=== PATIENT | female | born 2000 | race Two or more races ===

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

== ENCOUNTER 2021-09-12 20:48 | Inpatient (IN) | payer MEDICAID, OTHER ==
--- NOTE | 2021-09-12 22:33 | ED ---
General Adult HPI - General Chief complaint: Psychiatric Symptoms Stated complaint: Mental Health Time Seen by Provider: 09/12/21 21:11 Source: patient Mode of arrival: ambulatory Limitations: no limitations - History of Present Illness Initial comments: Dictation was produced using [facility] dictation software. please excuse any grammatical, word or spelling errors. Chief Complaint: 21-year-old female past medical history of insulin-dependent diabetes, epilepsy presents to the emergency department for depression and suicidal ideation History of Present Illness: 21-year-old female she denies any psychiatric history. Patient states she's been feeling suicidal for several weeks. Last night she felt like she wanted to end her life. She does not have a specific plan. Patient has history of diabetes she is noncompliant with her diabetes medications. Patient has no medical complaints at this time. Denies homicidal ideation. No visual or auditory hallucinations. Patient takes control pills. The ROS documented in this emergency department record has been reviewed and confirmed by me. Those systems with pertinent positive or negative responses have been documented in the HPI. All other systems are other negative and/or noncontributory. PHYSICAL EXAM: General Impression: Alert and oriented x3, not in acute distress HEENT: Normocephalic atraumatic, extra-ocular movements intact, pupils equal and reactive to light bilaterally, mucous membranes moist. Cardiovascular: Heart regular rate and rhythm Chest: Able to complete full sentences, no retractions, no tachypnea Abdomen: abdomen soft, non-tender, non-distended, no organomegaly Musculoskeletal: Pulses present and equal in all extremities, no peripheral edema Motor: no focal deficits noted Neurological: CN II-XII grossly intact, no focal motor or sensory deficits noted Skin: Intact with no visualized rashes Psych: Normal affect and mood ED course: 21 yo female presents to the emergency Department for suicidal ideation. She does not a specific plan. She is calm and well-appearing at the bedside. Patient denies any medical complaints. Physical examination is benign. Vital signs upon arrival shows heart rate 115, so vital signs within acceptable limits. Patient evaluated by EPS that we admitted to inpatient psychiatric unit. - Related Data Home Medications Medication Instructions Recorded Confirmed Norgestimate-Ethinyl Estradiol 1 each PO DAILY 12/10/14 03/17/16 [Ortho Tri-Cyclen 28 Tablet] Spironolactone [Aldactone] 25 mg PO DAILY 12/10/14 03/17/16 metFORMIN HCL [metFORMIN HCL ER] 1,000 mg PO DAILY 12/10/14 03/17/16 Naproxen [Naprosyn] 250 mg PO BID 03/17/16 03/17/16 Previous Rx's Medication Instructions Recorded Cyclobenzaprine [Flexeril] 10 mg PO TID PRN #15 tab 12/27/14 Doxycycline Monohydrate [Monodox] 100 mg PO Q12HR #20 cap 07/08/18 Allergies Allergy/AdvReac Type Severity Reaction Status Date / Time amoxicillin Allergy Unknown Verified 09/12/21 21:33 Review of Systems ROS Statement: Those systems with pertinent positive or pertinent negative responses have been documented in the HPI. ROS Other: All systems not noted in ROS Statement are negative. Past Medical History Past Medical History: Diabetes Mellitus Additional Past Medical History / Comment(s): back pain History of Any Multi-Drug Resistant Organisms: None Reported Past Surgical History: Orthopedic Surgery Additional Past Surgical History / Comment(s): left thumb Past Psychological History: Depression Smoking Status: Never smoker Past Alcohol Use History: Occasional Past Drug Use History: None Reported General Exam Limitations: no limitations Course Vital Signs 09/12/21 21:29 Temperature 98.0 F Pulse Rate 115 H Respiratory 18 Rate Blood Pressure 164/121 O2 Sat by Pulse 98 Oximetry Medical Decision Making - Lab Data Lab Results 09/13/21 09/13/21 09/13/21 Range/Units 00:38 00:38 00:47 POC Glucose (mg/dL) 254 H (70-110) mg/dL POC Glu Card Seller ID Kacey Schmitz Urine HCG, Qual Not Detected (Not Detectd) Urine Opiates Screen Not Detected (NotDetected) Ur Oxycodone Screen Not Detected (NotDetected) Urine Methadone Screen Not Detected (NotDetected) Ur Propoxyphene Screen Not Detected (NotDetected) Ur Barbiturates Screen Not Detected (NotDetected) U Tricyclic Antidepress Not Detected (NotDetected) Ur Phencyclidine Scrn Not Detected (NotDetected) Ur Amphetamines Screen Not Detected (NotDetected) U Methamphetamines Scrn Not Detected (NotDetected) U Benzodiazepines Scrn Not Detected (NotDetected) Urine Cocaine Screen Not Detected (NotDetected) U Marijuana (THC) Screen Not Detected (NotDetected) Disposition Clinical Impression: Suicidal behavior Disposition: ADMITTED IP TO THIS [facility] Condition: Fair Referrals: Sushant Fuentes DO [Primary Care Provider] - 1-2 days
[2021-09-13 00:49] LABS: Glucose,Whole Blood 254 mg/dL (70-110)
[2021-09-13 01:31] LABS: Amphetamine Screen,Urine Not Detected (NotDetected); Barbiturate Screen,Urine Not Detected (NotDetected); Benzodiazepines Screen,Urine Not Detected (NotDetected); Cocaine Screen,Urine Not Detected (NotDetected); Methadone Screen, Urine Not Detected (NotDetected); Opiate Screen,Urine Not Detected (NotDetected); Oxycodone Screen, Urine Not Detected (NotDetected); Phencyclidine Screen,Urine Not Detected (NotDetected); Tricyclic Antidepressant,Urine Not Detected (NotDetected); Urn Cannabinoid Scrn Not Detected (NotDetected)
[2021-09-13 05:07] LABS: Appearance,Urine Clear (Clear); Bilirubin,Urine Negative (Negative); Blood,Urine Negative (Negative); Color,Urine Yellow; Glucose,Urine (UA) 4+ (Negative); Leukocyte Esterase,Urine Trace (Negative); Mucus,Urine Rare /hpf; Nitrite,Urine Negative (Negative); Protein,Urine Trace (Negative); RBC,Urine 5 /hpf (0-5); Specific Gravity,Urine 1.044 (1.001-1.035); Squamous Epithelial Cell,Urine 2 /hpf (0-4); Urobilinogen,Urine <2.0 mg/dL (<2.0); WBC,Urine 3 /hpf (0-5)
[2021-09-13] MEDS ORDERED: LORazepam 1 MG TAB PO PRN (06:13)
[2021-09-13] MEDS ORDERED: ACETAMINOPHEN TAB 325 MG TAB PO PRN (06:13)
[2021-09-13] MEDS ORDERED: MAGNESIUM HYDROXIDE 2,400 MG/10 ML CUP PO PRN (06:13)
[2021-09-13] MEDS ORDERED: HALOPERIDOL LACTATE 5 MG/ML 1 ML VIAL IM PRN (06:13)
[2021-09-13] MEDS ORDERED: MAG HYDROX/AL HYDROX/SIMETH 30 ML CUP PO PRN (06:13)
[2021-09-13] MEDS ORDERED: LORazepam 2 MG/ML INJ IM PRN (06:17)
[2021-09-13] MEDS ORDERED: haloperidoL 5 MG TAB PO PRN (06:18)
[2021-09-13 06:40] VITALS: RESP 16
[2021-09-13 07:47] LABS: Ketones,Urine 2+ (Negative)
[2021-09-13 07:55] LABS: Glucose,Whole Blood 250 mg/dL (70-110)
[2021-09-13 10:33] LABS: Basophils % (A) 0 %; Eosinophils # (A) 0.2 k/uL (0-0.7); Eosinophils % (A) 1 %; HCT 46.1 % (34.0-46.0); HGB 14.8 gm/dL (11.4-16.0); Lymphocytes # (A) 1.8 k/uL (1.0-4.8); Lymphocytes % (A) 16 %; MCH 29.1 pg (25.0-35.0); MCHC 32.1 g/dL (31.0-37.0); MCV 90.5 fL (80.0-100.0); Mean Platelet Volume 8.6; Monocytes # (A) 0.4 k/uL (0-1.0); Monocytes % (A) 3 %; Neutrophils % (A) 79 %; Platelet Count 235 k/uL (150-450); RBC 5.09 m/uL (3.80-5.40); RDW 13.3 % (11.5-15.5); WBC 11.4 k/uL (3.8-10.6)
[2021-09-13 10:46] LABS: ALT 50 U/L (4-34); AST 39 U/L (14-36); African American GFR (CKD) >90 (>60 ml/min/1.73 sqM); Albumin 4.6 g/dL (3.5-5.0); Alkaline Phosphatase 69 U/L (38-126); Anion Gap 13 mmol/L; Blood Urea Nitrogen 15 mg/dL (7-17); Calcium 9.8 mg/dL (8.4-10.2); Carbon Dioxide 19 mmol/L (22-30); Chloride 106 mmol/L (98-107); Glucose 270 mg/dL (74-99); Non-African American GFR(CKD) >90 (>60 ml/min/1.73 sqM); Potassium 4.4 mmol/L (3.5-5.1); Sodium 138 mmol/L (137-145); Total Bilirubin 1.4 mg/dL (0.2-1.3); Total Protein 7.6 g/dL (6.3-8.2)
[2021-09-13] MEDS ORDERED: CYCLOBENZAPRINE 10 MG TAB PO PRN (10:46)
[2021-09-13] MEDS ORDERED: metFORMIN 500 MG TAB PO SCH (11:00)
[2021-09-13] MEDS: NAPROXEN 250 MG TAB PO SCH ×2 (12:12→21:42)
[2021-09-13 12:36] LABS: Glucose,Whole Blood 259 mg/dL (70-110)
[2021-09-13] MEDS: INSULIN ASPART (NovoLOG) 100 UNIT/ML VIAL SQ SCH ×3 (12:53→21:42)
--- NOTE | 2021-09-13 14:35 | P.CONS ---
History of Present Illness - Reason for Consult Consult date: 09/13/21 Medical management - Chief Complaint Suicidal ideation/depression - History of Present Illness 21-year-old female she denies any psychiatric history, with history of insulin- dependent diabetes and epilepsy. Patient states she's been feeling suicidal for several weeks. Last night she felt like she wanted to end her life. She does not have a specific plan. Patient has history of diabetes she is noncompliant with her diabetes medications. Patient has no medical complaints at this time. Denies homicidal ideation. No visual or auditory hallucinations. Patient takes control pills. Blood work completed in ED reveals a WBC of 11.4, hemoglobin of 14.8 and hematocrit of 46.1 with platelet count of 235, sodium 138, potassium 4.4, BUN/creatinine of 15/0.42 and blood glucoses ranging between 252-60; total bilirubin is elevated at 1.4 with AST/ALT of 39/50 Review of Systems REVIEW OF SYSTEMS: CONSTITUTIONAL: No fever, no malaise, no fatigue. HEENT: No recent visual problems or hearing problems. Denied any sore throat. CARDIOVASCULAR: No chest pain, orthopnea, PND, no palpitations, no syncope. PULMONARY: No shortness of breath, no cough, no hemoptysis. GASTROINTESTINAL: No diarrhea, no nausea, no vomiting, no abdominal pain. NEUROLOGICAL: No headaches, no weakness, no numbness. HEMATOLOGICAL: Denies any bleeding or petechiae. GENITOURINARY: Denies any burning micturition, frequency, or urgency. MUSCULOSKELETAL/RHEUMATOLOGICAL: Denies any joint pain, swelling, or any muscle pain. ENDOCRINE: Denies any polyuria or polydipsia. The rest of the 14-point review of systems is negative. Past Medical History Past Medical History: Diabetes Mellitus Additional Past Medical History / Comment(s): back pain History of Any Multi-Drug Resistant Organisms: None Reported Past Surgical History: Orthopedic Surgery Additional Past Surgical History / Comment(s): left thumb Past Psychological History: Depression Smoking Status: Never smoker Past Alcohol Use History: Occasional Past Drug Use History: None Reported Medications and Allergies Home Medications Medication Instructions Recorded Confirmed Type Norgestimate-Ethinyl Estradiol 1 each PO DAILY 12/10/14 09/13/21 History [Ortho Tri-Cyclen 28 Tablet] Spironolactone [Aldactone] 25 mg PO DAILY 12/10/14 09/13/21 History metFORMIN HCL [metFORMIN HCL ER] 1,000 mg PO DAILY 12/10/14 09/13/21 History Cyclobenzaprine [Flexeril] 10 mg PO TID PRN #15 tab 12/27/14 09/13/21 Rx Naproxen [Naprosyn] 250 mg PO BID 03/17/16 09/13/21 History Doxycycline Monohydrate [Monodox] 100 mg PO Q12HR #20 cap 07/08/18 09/13/21 Rx Allergies Allergy/AdvReac Type Severity Reaction Status Date / Time amoxicillin Allergy Unknown Verified 09/13/21 06:52 Physical Exam Vitals: Vital Signs Temp Pulse Pulse Resp BP BP Pulse Ox 09/13/21 06:39 98.2 F 105 H 16 141/80 97 09/12/21 21:29 98.0 F 115 H 18 164/121 98 Intake and Output 09/12/21 09/13/21 09/13/21 22:59 06:59 14:59 Other: Weight 104.326 kg PHYSICAL EXAMINATION: GENERAL: The patient is alert and oriented x3, not in any acute distress. Well developed, well nourished. HEENT: Pupils are round and equally reacting to light. EOMI. No scleral icterus. No conjunctival pallor. Normocephalic, atraumatic. No pharyngeal erythema. No thyromegaly. CARDIOVASCULAR: S1 and S2 present. No murmurs, rubs, or gallops. PULMONARY: Chest is clear to auscultation, no wheezing or crackles. ABDOMEN: Soft, nontender, nondistended, normoactive bowel sounds. No palpable organomegaly. MUSCULOSKELETAL: No joint swelling or deformity. EXTREMITIES: No cyanosis, clubbing, or pedal edema. NEUROLOGICAL: Gross neurological examination did not reveal any focal deficits. SKIN: No rashes. Results CBC & Chem 7: 09/13/21 10:10 09/13/21 10:10 Labs: Abnormal Lab Results - Last 24 Hours (Table) 09/13/21 09/13/21 09/13/21 Range/Units 00:38 00:47 07:53 WBC (3.8-10.6) k/uL Hct (34.0-46.0) % Neutrophils # (1.3-7.7) k/uL POC Glucose (mg/dL) 254 H 250 H (70-110) mg/dL Ur Specific [place] 1.044 H (1.001-1.035) Urine Protein Trace H (Negative) Urine Glucose (UA) 4+ H (Negative) Urine Ketones 2+ H (Negative) Ur Leukocyte Esterase Trace H (Negative) Urine Mucus Rare H (None) /hpf 09/13/21 Range/Units 10:10 WBC 11.4 H (3.8-10.6) k/uL Hct 46.1 H (34.0-46.0) % Neutrophils # 9.0 H (1.3-7.7) k/uL POC Glucose (mg/dL) (70-110) mg/dL Ur Specific [place] (1.001-1.035) Urine Protein (Negative) Urine Glucose (UA) (Negative) Urine Ketones (Negative) Ur Leukocyte Esterase (Negative) Urine Mucus (None) /hpf Assessment and Plan Assessment: 1. Depression/suicidal ideation; your management 2. Diabetes mellitus; patient reports that she was initially placed on metformin and was later switched to insulin; confides that she hasn't been able to take insulin or metformin not being able to follow-up with PCP; we will start patient on home dose of metformin and continue to monitor Accu-Cheks every before meals and at bedtime with insulin sliding scale; further adjustments pending results 3. Chronic back pain; continue with Naprosyn 4. Transaminitis/hyperbilirubinemia; patient denies any history of EtOH abuse or history of gallstones; we will monitor liver enzymes with plans to obtain hepatic ultrasound, hepatitis profile 5. Obesity; counseling done and need for weight reduction
[2021-09-13 16:28] LABS: Albumin 4.4 g/dL (3.5-5.0); Bilirubin, Delta 0.2 mg/dL (0.0-0.2); Bilirubin,Unconjugated 0.7 mg/dL (0.0-1.1); Total Bilirubin 0.9 mg/dL (0.2-1.3); Total Protein 7.1 g/dL (6.3-8.2)
[2021-09-13 17:37] LABS: Glucose,Whole Blood 227 mg/dL (70-110)
[2021-09-13 20:12] LABS: Glucose,Whole Blood 248 mg/dL (70-110)
[2021-09-13] MEDS ORDERED: traZODone HCL 50 MG TAB PO PRN (21:35)
[2021-09-13] MEDS: metFORMIN 500 MG TAB PO SCH (21:42)
[2021-09-13] MEDS: ESCITALOPRAM 5 MG TAB PO SCH (21:44)
--- NOTE | 2021-09-13 22:04 | P.HP ---
Psychiatric H&P - . H&P Date: 09/13/21 History & Physical: IDENTIFYING DATA: Patient is a single 21 year old female with depression and insulin dependent diabetes. HPI: Patient presented to the hospital due to suicidal ideations. She reports she started feeling depressed before her mother in 2016, but she has been increasingly more depressed over since her mother . She reports feeling hopeless, helpless, worthless. She reports she has been having suicidal thoughts for the past year but reports she previously did not have a plan. She reports over the past three weeks she has had plans of overdosing on her sister's pills. She states she is responsible for overseeing her sister's pills since her sister has overdosed multiple times in the past. She denies any past suicide attempts, thinks of her sister and that is a protective factor for her. She reports difficulty falling and staying asleep, and wakes up early without being able to return to sleep, gets about 3-4 hours of sleep at night. She reports anhedonia, guilt, low energy, difficulty concentrating, fair appetite, psychomotor retardation. She reports high anxiety with chronic worries that are difficult to control, with feeling restless/on-edge, and irritable. She denies panic attacks. She reports hearing noises at times that she can't make out, but denies overt auditory or visual hallucinations. She does not express paranoid ideations. Patient denies any flight of ideas racing thoughts and increased in goal directed behavior. Patient denies alcohol, drug or tobacco use. PAST PSYCHIATRIC HISTORY: Patient states that she had previously seen a counselor who told her she had major depressive disorder and acute stress disorder. Patient denies being on any psychiatric medications. Patient denies any previous psychiatric hospitalizations. Patient denies any psychiatric outpatient follow-up. Patient denies any history of suicide attempts in the past. PMH: Insulin-dependent diabetes Epilepsy - not on medications for it, reports last seizure was at around 4 years old. ALLERGIES: as per EMR CHEMICAL DEPENDENCY HISTORY: as per HPI FAMILY PSYCHIATRIC/SUBSTANCE USE HISTORY: Sister - depression, anxiety, borderline personality disorder; takes Adderall and Seroquel and another medications, has been hospitalized, has attempted suicide multiple times. Patient reports each time her sister has attempted suicide (by overdose) she has come to patient and patient would call 911/take her to the hospital. Father - depression SOCIAL HISTORY: Patient was born in [facility] and raised in [facility]. Parents were , mother in 2016 due to heart attack while patient was with her at home (mother collapsed in front of patient, called 911, mother was brought to [facility] and here). Has a younger sister (19 yo). Lives with her younger sister and father in [place], [place]. Father works as a kier operator. She is enrolled in an online program to finish high school. Does not work, does school online. 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 MENTAL STATUS EXAM: General Appearance: Patient appears to be stated age, obese, dressed in casual attire, hair dyed multiple colors. Behavior: Patient is seated without any agitated behavior, is tearful. Speech: Patient's speech is fluent and non-pressured, speaks in soft tone. Mood/Affect: Patient reports her mood is depressed, affect is congruent. Suicidality/Homicidality: Patient denies having any homicidal ideation intent or plan. Patient endorses suicidal ideation with plan to overdose on pills. Perceptions: Patient denies any visual hallucinations and denies any auditory hallucinations. Though content/process: There is no evidence of any delusional thought content and thought process is linear and goal-directed. Memory and concentration: AOX3, grossly intact for the purposes of this session. Can spell "WORLD" backwards. Judgment and insight: Good STRENGTHS/WEAKNESSES: Strength is that patient is resilient. Weakness is that patient does not have transportation. INTELLECT: Average IMPRESSIONS: Major depressive disorder, single episode, severe Generalized anxiety disorder PLAN: -Patient is admitted under voluntary status to [facility] for stabilization of psychiatric symptoms and safety. Patient has signed adult voluntary form and medication consent and is placed in patient's chart. -Medications: Start Lexapro at 5 mg QHS for depression/anxiety with plan to increase to 10 mg as tolerated. Start Trazodone 50 mg QHS PRN for sleep. -Ativan and Haldol PRN for agitation/aggression -Patient was informed of the risks, benefits and side effects of the medication and patient verbally consented to taking the medications. Patient signed med consent form and was placed in chart. -Internal Medicine consult to perform medical evaluation and physical. -NRT - not needed, nonsmoker -Encourage patient to participate in groups to work on coping skills. Allergies Allergy/AdvReac Type Severity Reaction Status Date / Time amoxicillin Allergy Unknown Verified 09/13/21 06:52 Vital Signs Temp 98.2 F 09/13/21 06:39 Pulse 105 H 09/13/21 06:39 Resp 16 09/13/21 06:39 BP 141/80 09/13/21 06:39 Pulse Ox 97 09/13/21 06:39 FiO2 Intake & Output 09/13/21 09/13/21 09/14/21 06:59 18:59 06:59 Weight 104.326 kg 103.9 kg Laboratory Last Values WBC 11.4 k/uL (3.8-10.6) H 09/13/21 10:10 RBC 5.09 m/uL (3.80-5.40) 09/13/21 10:10 Hgb 14.8 gm/dL (11.4-16.0) 09/13/21 10:10 Hct 46.1 % (34.0-46.0) H 09/13/21 10:10 MCV 90.5 fL (80.0-100.0) 09/13/21 10:10 MCH 29.1 pg (25.0-35.0) 09/13/21 10:10 MCHC 32.1 g/dL (31.0-37.0) 09/13/21 10:10 RDW 13.3 % (11.5-15.5) 09/13/21 10:10 Plt Count 235 k/uL (150-450) 09/13/21 10:10 MPV 8.6 09/13/21 10:10 Neutrophils % 79 % 09/13/21 10:10 Lymphocytes % 16 % 09/13/21 10:10 Monocytes % 3 % 09/13/21 10:10 Eosinophils % 1 % 09/13/21 10:10 Basophils % 0 % 09/13/21 10:10 Neutrophils # 9.0 k/uL (1.3-7.7) H 09/13/21 10:10 Lymphocytes # 1.8 k/uL (1.0-4.8) 09/13/21 10:10 Monocytes # 0.4 k/uL (0-1.0) 09/13/21 10:10 Eosinophils # 0.2 k/uL (0-0.7) 09/13/21 10:10 Basophils # 0.0 k/uL (0-0.2) 09/13/21 10:10 Sodium 138 mmol/L (137-145) 09/13/21 10:10 Potassium 4.4 mmol/L (3.5-5.1) 09/13/21 10:10 Chloride 106 mmol/L (98-107) 09/13/21 10:10 Carbon Dioxide 19 mmol/L (22-30) L 09/13/21 10:10 Anion Gap 13 mmol/L 09/13/21 10:10 BUN 15 mg/dL (7-17) 09/13/21 10:10 Creatinine 0.42 mg/dL (0.52-1.04) L 09/13/21 10:10 Est GFR (CKD-EPI)AfAm >90 (>60 ml/min/1.73 sqM) 09/13/21 10:10 Est GFR (CKD-EPI)NonAf >90 (>60 ml/min/1.73 sqM) 09/13/21 10:10 Glucose 270 mg/dL (74-99) H 09/13/21 10:10 POC Glucose (mg/dL) 248 mg/dL (70-110) H 09/13/21 20:10 POC Glu Scalp Treatment Operator ID Matt Alatorre 09/13/21 20:[address] Glu mg/dL 260 09/13/21 10:10 Hemoglobin A1c 10.7 % (0.0-6.0) H 09/13/21 10:10 Calcium 9.8 mg/dL (8.4-10.2) 09/13/21 10:10 Total Bilirubin 0.9 mg/dL (0.2-1.3) 09/13/21 15:27 Conjugated Bilirubin 0.0 mg/dL (0.0-0.3) 09/13/21 15:27 Unconjugated Bilirubin 0.7 mg/dL (0.0-1.1) 09/13/21 15:27 Delta Bilirubin 0.2 mg/dL (0.0-0.2) 09/13/21 15:27 AST 26 U/L (14-36) 09/13/21 15:27 ALT 47 U/L (4-34) H 09/13/21 15:27 Alkaline Phosphatase 74 U/L (38-126) 09/13/21 15:27 Total Protein 7.1 g/dL (6.3-8.2) 09/13/21 15:27 Albumin 4.4 g/dL (3.5-5.0) 09/13/21 15:27 TSH 2.540 mIU/L (0.465-4.680) 09/13/21 10:10 Urine Color Yellow 09/13/21 00:38 Urine Appearance Clear (Clear) 09/13/21 00:38 Urine pH 5.0 (5.0-8.0) 09/13/21 00:38 Ur Specific Preston 1.044 (1.001-1.035) H 09/13/21 00:38 Urine Protein Trace (Negative) H 09/13/21 00:38 Urine Glucose (UA) 4+ (Negative) H 09/13/21 00:38 Urine Ketones 2+ (Negative) H 09/13/21 00:38 Urine Blood Negative (Negative) 09/13/21 00:38 Urine Nitrite Negative (Negative) 09/13/21 00:38 Urine Bilirubin Negative (Negative) 09/13/21 00:38 Urine Urobilinogen <2.0 mg/dL (<2.0) 09/13/21 00:38 Ur Leukocyte Esterase Trace (Negative) H 09/13/21 00:38 Urine RBC 5 /hpf (0-5) 09/13/21 00:38 Urine WBC 3 /hpf (0-5) 09/13/21 00:38 Ur Squamous Epith Cells 2 /hpf (0-4) 09/13/21 00:38 Urine Mucus Rare /hpf (None) H 09/13/21 00:38 Urine HCG, Qual Not Detected (Not Detectd) 09/13/21 00:38 Urine Opiates Screen Not Detected (NotDetected) 09/13/21 00:38 Ur Oxycodone Screen Not Detected (NotDetected) 09/13/21 00:38 Urine Methadone Screen Not Detected (NotDetected) 09/13/21 00:38 Ur Propoxyphene Screen Not Detected (NotDetected) 09/13/21 00:38 Ur Barbiturates Screen Not Detected (NotDetected) 09/13/21 00:38 U Tricyclic Antidepress Not Detected (NotDetected) 09/13/21 00:38 Ur Phencyclidine Scrn Not Detected (NotDetected) 09/13/21 00:38 Ur Amphetamines Screen Not Detected (NotDetected) 09/13/21 00:38 U Methamphetamines Scrn Not Detected (NotDetected) 09/13/21 00:38 U Benzodiazepines Scrn Not Detected (NotDetected) 09/13/21 00:38 Urine Cocaine Screen Not Detected (NotDetected) 09/13/21 00:38 U Marijuana (THC) Screen Not Detected (NotDetected) 09/13/21 00:38 Coronavirus (PCR) Not Detected (Not Detectd) 09/13/21 05:20 09/13/21 20:57
[2021-09-14 08:12] LABS: Glucose,Whole Blood 182 mg/dL (70-110)
[2021-09-14 09:07] LABS: Chol/HDL Ratio 5.69 Ratio; LDL Cholesterol,Calculated 119.1 mg/dL (0.0-131.0)
[2021-09-14 09:13] LABS: Hepatitis A Antibody IgM Nonreactive (Nonreactive); Hepatitis B Core IgM Nonreactive (Nonreactive); Hepatitis B Surface Antigen Nonreactive (Nonreactive); Hepatitis C IgG Antibody Nonreactive (Nonreactive)
[2021-09-14 13:05] VITALS: BMI 39.3
[2021-09-14 13:05] LABS: Glucose,Whole Blood 204 mg/dL (70-110)
[2021-09-14] MEDS: NAPROXEN 250 MG TAB PO SCH ×2 (13:05→21:51)
[2021-09-14] MEDS: metFORMIN 500 MG TAB PO SCH ×3 (13:05→21:52)
[2021-09-14] MEDS: INSULIN ASPART (NovoLOG) 100 UNIT/ML VIAL SQ SCH ×4 (13:05→20:02)
[2021-09-14 17:55] LABS: Glucose,Whole Blood 185 mg/dL (70-110)
--- NOTE | 2021-09-14 19:36 | P.PN ---
Progress Note - Text Progress Note Date: 09/14/21 Interval History: Patient was seen attending group and was directable and agreeable to speak with field underwriter in the office. She reports feeling a little bit better today, but still overall depressed and anxious. She took her first dose of Lexapro last night and reports today feeling a bit nauseas and tired, but otherwise no other side effects reported. She did not take the Trazodone last night. Sleep and appetite are fair. At this time patient denies any suicidal or homicidal ideations, intent or plan. Patient denies any auditory, visual hallucinations and denies any paranoia or delusions. She is attending groups. Mental Status Exam: General Appearance: Patient appears to be stated age, obese, dressed in casual attire, hair dyed multiple colors. Behavior: Patient is calm without any agitated behavior, somewhat withdrawn. Speech: Patient's speech is fluent and non-pressured, speaks in soft tone. Mood/Affect: Patient reports her mood is depressed but a little bit better today, affect is congruent. Suicidality/Homicidality: Patient denies having any suicidal or homicidal ideation intent or plan so far today. Perceptions: Patient denies any visual hallucinations and denies any auditory hallucinations. Though content/process: There is no evidence of any delusional thought content and thought process is linear and goal-directed. Memory and concentration: AOX3, grossly intact for the purposes of this session. Judgment and insight: Good Assessment Major depressive disorder, single episode, severe Generalized anxiety disorder Plan: -Patient continues to meet criteria for inpatient psychiatric admission for symptom stabilization and safety. Patient has [not] signed [adult voluntary form and] [medication consent] and was placed in patient's chart. -Medications: Continue Lexapro 5 mg QHS for depression/anxiety with plan to increase to 10 mg on Tuesday. Continue Trazodone 50 mg QHS PRN for sleep. -When necessary Ativan and Haldol for agitation/aggression. -NRT - not needed, nonsmoker -SW on board for discharge planning. Encouraged the patient to participate in milieu.
[2021-09-14 19:59] LABS: Glucose,Whole Blood 259 mg/dL (70-110)
[2021-09-14] MEDS: ESCITALOPRAM 5 MG TAB PO SCH (21:51)
[2021-09-15 07:46] LABS: Glucose,Whole Blood 156 mg/dL (70-110)
[2021-09-15] MEDS: INSULIN ASPART (NovoLOG) 100 UNIT/ML VIAL SQ SCH ×4 (08:13→20:10)
[2021-09-15] MEDS: NAPROXEN 250 MG TAB PO SCH ×2 (08:16→20:17)
[2021-09-15] MEDS: metFORMIN 500 MG TAB PO SCH ×2 (08:16→20:17)
[2021-09-15 12:48] LABS: Glucose,Whole Blood 160 mg/dL (70-110)
[2021-09-15 17:39] LABS: Glucose,Whole Blood 149 mg/dL (70-110)
--- NOTE | 2021-09-15 19:47 | P.PN ---
Progress Note - Text Progress Note Date: 09/15/21 Interval History: Patient was seen reading in her room and was directable and agreeable to speak with process description writer. She reports feeling a little bit better today, but still appears somewhat anxious. She reports improving mood, sleep and appetite. At this time patient denies any suicidal or homicidal ideations, intent or plan. Patient denies any auditory, visual hallucinations and denies any paranoia or delusions. She is attending groups. She is medication compliant and denies medication side effects. Mental Status Exam: General Appearance: Patient appears to be stated age, obese with hirsutism, dressed in casual attire, hair dyed multiple colors. Behavior: Patient is calm without any agitated behavior, less withdrawn. Speech: Patient's speech is fluent and non-pressured, speaks in soft tone. Mood/Affect: Patient reports her mood is improving, still anxious, affect is congruent. Suicidality/Homicidality: Patient denies having any suicidal or homicidal ideation intent or plan so far today. Perceptions: Patient denies any visual hallucinations and denies any auditory hallucinations. Though content/process: There is no evidence of any delusional thought content and thought process is linear and goal-directed. Memory and concentration: AOX3, grossly intact for the purposes of this session. Judgment and insight: Good Assessment Major depressive disorder, single episode, severe Generalized anxiety disorder Plan: -Patient continues to meet criteria for inpatient psychiatric admission for symptom stabilization and safety. Patient has signed adult voluntary form and medication consent and was placed in patient's chart. -Medications: Increase Lexapro to 10 mg QHS for depression/anxiety. Continue Trazodone 50 mg QHS PRN for sleep. -When necessary Ativan and Haldol for agitation/aggression. -NRT - not needed, nonsmoker -SW on board for discharge planning. Encouraged the patient to participate in milieu.
[2021-09-15 20:04] LABS: Glucose,Whole Blood 175 mg/dL (70-110)
[2021-09-15] MEDS: ESCITALOPRAM 10 MG TAB PO SCH (20:17)
[2021-09-16 07:53] LABS: Glucose,Whole Blood 158 mg/dL (70-110)
[2021-09-16] MEDS: metFORMIN 500 MG TAB PO SCH ×2 (07:53→20:44)
[2021-09-16] MEDS: NAPROXEN 250 MG TAB PO SCH ×2 (07:53→20:44)
[2021-09-16] MEDS: INSULIN ASPART (NovoLOG) 100 UNIT/ML VIAL SQ SCH ×4 (07:55→20:42)
[2021-09-16 12:40] LABS: Glucose,Whole Blood 206 mg/dL (70-110)
--- NOTE | 2021-09-16 17:43 | P.PN ---
Progress Note - Text Progress Note Date: 09/16/21 Interval History: Patient was seen reading in her room and was directable and agreeable to speak with writer editor. She reports feeling better today, and reports good appetite and adequate sleep, but reports she did have nightmare about her mother last night which she normally doesn't. At this time patient denies any suicidal or homicidal ideations, intent or plan. Patient denies any auditory or visual hallucinations, and denies any paranoia or delusions. She is medication compl iant and denies medication side effects. She did talk to her father today and reports conversation went well. She did not yet discuss with him the management of her sister's medications but plan to do that today. Mental Status Exam: General Appearance: Patient appears to be stated age, obese with hirsutism, dressed in casual attire, hair dyed multiple colors. Behavior: Patient is calm without any agitated behavior. Speech: Patient's speech is fluent and non-pressured, speaks in soft tone. Mood/Affect: Patient reports her mood is improving, still anxious, affect is congruent. Suicidality/Homicidality: Patient denies having any suicidal or homicidal ideations, intent or plan. Perceptions: Patient denies any visual hallucinations and denies any auditory hallucinations. Though content/process: There is no evidence of any delusional thought content and thought process is linear and goal-directed. Memory and concentration: AOX3, grossly intact for the purposes of this session. Judgment and insight: Good Assessment Major depressive disorder, single episode, severe without psychotic features Generalized anxiety disorder Plan: -Patient continues to meet criteria for inpatient psychiatric admission for symptom stabilization and safety. Patient has signed adult voluntary form and medication consent and was placed in patient's chart. -Medications: Continue Lexapro 10 mg QHS for depression/anxiety. Continue Trazodone 50 mg QHS PRN for sleep. Has not needed this so far this admission. -When necessary Ativan and Haldol for agitation/aggression. -NRT - not needed, nonsmoker -SW on board for discharge planning. nuclear worker technician to confirm with father that he will manage the medications in the household, keep medications locked in a lock box to minimize the risk of overdose. -Possible discharge home tomorrow if continues to stabilize. -Encouraged the patient to participate in milieu.
[2021-09-16 17:45] LABS: Glucose,Whole Blood 137 mg/dL (70-110)
[2021-09-16 20:15] LABS: Glucose,Whole Blood 249 mg/dL (70-110)
[2021-09-16] MEDS: ESCITALOPRAM 10 MG TAB PO SCH (21:03)
[2021-09-17 07:39] LABS: Glucose,Whole Blood 139 mg/dL (70-110)
[2021-09-17 08:27] VITALS: BP 135/74; PULSE 95; TEMP 96.8
[2021-09-17] MEDS: INSULIN ASPART (NovoLOG) 100 UNIT/ML VIAL SQ SCH ×2 (08:27→12:35)
[2021-09-17] MEDS: NAPROXEN 250 MG TAB PO SCH (08:28)
[2021-09-17] MEDS: metFORMIN 500 MG TAB PO SCH (08:28)
[2021-09-17 12:36] LABS: Glucose,Whole Blood 131 mg/dL (70-110)
--- NOTE | 2021-09-17 15:58 | P.DS ---
Providers Date of admission: 09/13/21 06:11 Expected date of discharge: 09/17/21 Attending physician: Mars Ramos MD Consults: 09/13/21 06:13 Consult Physician Routine Consulting Provider: Christel Stubbs Consult Reason/Comments: H&P for mental health admission Do you want consulting provider notified?: Yes, Notify in am Primary care physician: [facility] Course: Admission HPI: Admission note was completed by Dr. Ly "[IDENTIFYING DATA: Patient is a single 21 year old female with depression and insulin dependent diabetes. HPI: Patient presented to the hospital due to suicidal ideations. She reports she started feeling depressed before her mother in 2016, but she has been increasingly more depressed over since her mother . She reports feeling hopeless, helpless, worthless. She reports she has been having suicidal thoughts for the past year but reports she previously did not have a plan. She reports over the past three weeks she has had plans of overdosing on her sister's pills. She states she is responsible for overseeing her sister's pills since her sister has overdosed multiple times in the past. She denies any past suicide attempts, thinks of her sister and that is a protective factor for her. She reports difficulty falling and staying asleep, and wakes up early without being able to return to sleep, gets about 3-4 hours of sleep at night. She reports anhedonia, guilt, low energy, difficulty concentrating, fair appetite, psychomotor retardation. She reports high anxiety with chronic worries that are difficult to control, with feeling restless/on-edge, and irritable. She denies panic attacks. She reports hearing noises at times that she can't make out, but denies overt auditory or visual hallucinations. She does not express paranoid ideations. Patient denies any flight of ideas racing thoughts and increased in goal directed behavior. Patient denies alcohol, drug or tobacco use. PAST PSYCHIATRIC HISTORY: Patient states that she had previously seen a counselor who told her she had major depressive disorder and acute stress disorder. Patient denies being on any psychiatric medications. Patient denies any previous psychiatric hospitalizations. Patient denies any psychiatric outpatient follow-up. Patient denies any history of suicide attempts in the past. PMH: Insulin-dependent diabetes Epilepsy - not on medications for it, reports last seizure was at around 4 years old. ALLERGIES: as per EMR CHEMICAL DEPENDENCY HISTORY: as per HPI FAMILY PSYCHIATRIC/SUBSTANCE USE HISTORY: Sister - depression, anxiety, borderline personality disorder; takes Adderall and Seroquel and another medications, has been hospitalized, has attempted suicide multiple times. Patient reports each time her sister has attempted suicide (by overdose) she has come to patient and patient would call 911/take her to the hospital. Father - depression SOCIAL HISTORY: Patient was born in [facility] and raised in [facility]. Parents were , mother in 2016 due to heart attack while patient was with her at home (mother collapsed in front of patient, called 911, mother was brought to [facility] and here). Has a younger sister (19 yo). Lives with her younger sister and father in [place], [place]. Father works as a panel wirer. She is enrolled in an online program to finish high school. Does not work, does school online. 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 MENTAL STATUS EXAM: General Appearance: Patient appears to be stated age, obese, dressed in casual attire, hair dyed multiple colors. Behavior: Patient is seated without any agitated behavior, is tearful. Speech: Patient's speech is fluent and non-pressured, speaks in soft tone. Mood/Affect: Patient reports her mood is depressed, affect is congruent. Suicidality/Homicidality: Patient denies having any homicidal ideation intent or plan. Patient endorses suicidal ideation with plan to overdose on pills. Perceptions: Patient denies any visual hallucinations and denies any auditory hallucinations. Though content/process: There is no evidence of any delusional thought content and thought process is linear and goal-directed. Memory and concentration: AOX3, grossly intact for the purposes of this session. Can spell "WORLD" backwards. Judgment and insight: Good STRENGTHS/WEAKNESSES: Strength is that patient is resilient. Weakness is that patient does not have transportation. INTELLECT: Average IMPRESSIONS: Major depressive disorder, single episode, severe Generalized anxiety disorder PLAN: -Patient is admitted under voluntary status to MHU for stabilization of psychia tric symptoms and safety. Patient has signed adult voluntary form and medication consent and is placed in patient's chart. -Medications: Start Lexapro at 5 mg QHS for depression/anxiety with plan to increase to 10 mg as tolerated. Start Trazodone 50 mg QHS PRN for sleep. -Ativan and Haldol PRN for agitation/aggression -Patient was informed of the risks, benefits and side effects of the medication and patient verbally consented to taking the medications. Patient signed med consent form and was placed in chart. -Internal Medicine consult to perform medical evaluation and physical. -NRT - not needed, nonsmoker -Encourage patient to participate in groups to work on coping skills. Allergies Allergy/AdvReac Type Severity Reaction Status Date / Time amoxicillin Allergy Unknown Verified 09/13/21 06:52 Vital Signs Temp 98.2 F 09/13/21 06:39 Pulse 105 H 09/13/21 06:39 Resp 16 09/13/21 06:39 BP 141/80 09/13/21 06:39 Pulse Ox 97 09/13/21 06:39 FiO2 Intake & Output 09/13/21 09/13/21 09/14/21 06:59 18:59 06:59 Weight 104.326 kg 103.9 kg Laboratory Last Values WBC 11.4 k/uL (3.8-10.6) H 09/13/21 10:10 RBC 5.09 m/uL (3.80-5.40) 09/13/21 10:10 Hgb 14.8 gm/dL (11.4-16.0) 09/13/21 10:10 Hct 46.1 % (34.0-46.0) H 09/13/21 10:10 MCV 90.5 fL (80.0-100.0) 09/13/21 10:10 MCH 29.1 pg (25.0-35.0) 09/13/21 10:10 MCHC 32.1 g/dL (31.0-37.0) 09/13/21 10:10 RDW 13.3 % (11.5-15.5) 09/13/21 10:10 Plt Count 235 k/uL (150-450) 09/13/21 10:10 MPV 8.6 09/13/21 10:10 Neutrophils % 79 % 09/13/21 10:10 Lymphocytes % 16 % 09/13/21 10:10 Monocytes % 3 % 09/13/21 10:10 Eosinophils % 1 % 09/13/21 10:10 Basophils % 0 % 09/13/21 10:10 Neutrophils # 9.0 k/uL (1.3-7.7) H 09/13/21 10:10 Lymphocytes # 1.8 k/uL (1.0-4.8) 09/13/21 10:10 Monocytes # 0.4 k/uL (0-1.0) 09/13/21 10:10 Eosinophils # 0.2 k/uL (0-0.7) 09/13/21 10:10 Basophils # 0.0 k/uL (0-0.2) 09/13/21 10:10 Sodium 138 mmol/L (137-145) 09/13/21 10:10 Potassium 4.4 mmol/L (3.5-5.1) 09/13/21 10:10 Chloride 106 mmol/L (98-107) 09/13/21 10:10 Carbon Dioxide 19 mmol/L (22-30) L 09/13/21 10:10 Anion Gap 13 mmol/L 09/13/21 10:10 BUN 15 mg/dL (7-17) 09/13/21 10:10 Creatinine 0.42 mg/dL (0.52-1.04) L 09/13/21 10:10 Est GFR (CKD-EPI)AfAm >90 (>60 ml/min/1.73 sqM) 09/13/21 10:10 Est GFR (CKD-EPI)NonAf >90 (>60 ml/min/1.73 sqM) 09/13/21 10:10 Glucose 270 mg/dL (74-99) H 09/13/21 10:10 POC Glucose (mg/dL) 248 mg/dL (70-110) H 09/13/21 20:10 POC Glu Ancient Art Curator ID Matt Alatorre 09/13/21 20:[address] Glu mg/dL 260 09/13/21 10:10 Hemoglobin A1c 10.7 % (0.0-6.0) H 09/13/21 10:10 Calcium 9.8 mg/dL (8.4-10.2) 09/13/21 10:10 Total Bilirubin 0.9 mg/dL (0.2-1.3) 09/13/21 15:27 Conjugated Bilirubin 0.0 mg/dL (0.0-0.3) 09/13/21 15:27 Unconjugated Bilirubin 0.7 mg/dL (0.0-1.1) 09/13/21 15:27 Delta Bilirubin 0.2 mg/dL (0.0-0.2) 09/13/21 15:27 AST 26 U/L (14-36) 09/13/21 15:27 ALT 47 U/L (4-34) H 09/13/21 15:27 Alkaline Phosphatase 74 U/L (38-126) 09/13/21 15:27 Total Protein 7.1 g/dL (6.3-8.2) 09/13/21 15:27 Albumin 4.4 g/dL (3.5-5.0) 09/13/21 15:27 TSH 2.540 mIU/L (0.465-4.680) 09/13/21 10:10 Urine Color Yellow 09/13/21 00:38 Urine Appearance Clear (Clear) 09/13/21 00:38 Urine pH 5.0 (5.0-8.0) 09/13/21 00:38 Ur Specific [place] 1.044 (1.001-1.035) H 09/13/21 00:38 Urine Protein Trace (Negative) H 09/13/21 00:38 Urine Glucose (UA) 4+ (Negative) H 09/13/21 00:38 Urine Ketones 2+ (Negative) H 09/13/21 00:38 Urine Blood Negative (Negative) 09/13/21 00:38 Urine Nitrite Negative (Negative) 09/13/21 00:38 Urine Bilirubin Negative (Negative) 09/13/21 00:38 Urine Urobilinogen <2.0 mg/dL (<2.0) 09/13/21 00:38 Ur Leukocyte Esterase Trace (Negative) H 09/13/21 00:38 Urine RBC 5 /hpf (0-5) 09/13/21 00:38 Urine WBC 3 /hpf (0-5) 09/13/21 00:38 Ur Squamous Epith Cells 2 /hpf (0-4) 09/13/21 00:38 Urine Mucus Rare /hpf (None) H 09/13/21 00:38 Urine HCG, Qual Not Detected (Not Detectd) 09/13/21 00:38 Urine Opiates Screen Not Detected (NotDetected) 09/13/21 00:38 Ur Oxycodone Screen Not Detected (NotDetected) 09/13/21 00:38 Urine Methadone Screen Not Detected (NotDetected) 09/13/21 00:38 Ur Propoxyphene Screen Not Detected (NotDetected) 09/13/21 00:38 Ur Barbiturates Screen Not Detected (NotDetected) 09/13/21 00:38 U Tricyclic Antidepress Not Detected (NotDetected) 09/13/21 00:38 Ur Phencyclidine Scrn Not Detected (NotDetected) 09/13/21 00:38 Ur Amphetamines Screen Not Detected (NotDetected) 09/13/21 00:38 U Methamphetamines Scrn Not Detected (NotDetected) 09/13/21 00:38 U Benzodiazepines Scrn Not Detected (NotDetected) 09/13/21 00:38 Urine Cocaine Screen Not Detected (NotDetected) 09/13/21 00:38 U Marijuana (THC) Screen Not Detected (NotDetected) 09/13/21 00:38 Coronavirus (PCR) Not Detected (Not Detectd) 09/13/21 05:20 ]" Hospital course: Upon admission to the unit patient was directable and agreeable to commence treatment and signed adult voluntary form. Patient got along well with other patients on the unit and followed unit protocol. Patient was compliant with the medications and denied any side effects throughout hospital course. Patient was started on Lexapro 5 mg daily and increased to Lexapro 10 mg daily for depression/anxiety. She was also started on Trazodone 50 mg QHS PRN for sleep. Patient spoke of her stressors and engaged in therapy both group and individual. Patient was also seen by medical team for history and physical exam. Patient has symptoms of PCOS and was instructed to follow-up with her outpatient PCP, to which she agreed. Throughout the course of the hospitalization patient gradually improved with regards to her depressed mood, anxiety, sleep and returned back to their baseline level of functioning, became more future oriented with improved insight and judgment. On the day of discharge patient denied any suicidal or homicidal ideations, intent or plan denied any auditory or visual hallucinations. Patient endorsed wanting to live for her health and family. The patient denied any access to guns or weapons. Patient denied any paranoia and did not endorse any delusions. Patient does not have a significant history of substance abuse. Patient was also counseled on the medications and need for regular compliance and was encouraged to follow-up with their outpatient appointment for mental health and also for primary care. Prior to discharge a family meeting will be arranged by social media marketer to answer any questions and ensure safety upon discharge. Patient's father has agreed to over management of the medications in the home to minimize the risk of overdose. Mental status exam: General Appearance: Patient appears to be stated age, obese with hirsutism, dressed in casual attire, hair dyed multiple colors. Behavior: Patient is calm without any agitated behavior. Speech: Patient's speech is fluent and non-pressured, speaks in soft tone. Mood/Affect: Patient reports her mood is "good", affect is congruent. Suicidality/Homicidality: Patient denies having any suicidal or homicidal ideations, intent or plan. Perceptions: Patient denies any visual hallucinations and denies any auditory hallucinations. Though content/process: There is no evidence of any delusional thought content and thought process is linear and goal-directed. Memory and concentration: AOX3, grossly intact for the purposes of this session. Judgment and insight: Good Impression: Major depressive disorder, single episode, severe without psychotic features Generalized anxiety disorder Plan: -Continue with discharge today as patient has improved and stabilized psychiatrically and is not currently an imminent threat to herself and/or others. -Continue medications: [ Lexapro 10 mg QHS for depression/anxiety Trazodone 50 mg QHS PRN for sleep -Patient was counseled on the need for medication compliance and appropriate follow-up at mental health and also primary care for medical issues including PCOS. Patient verbalized understanding and agreed. -Social work to arrange for and conduct family meeting to ensure safety upon discharge and answer any questions/concerns. Social work also to arrange for patients follow up appointments with [facility] for psychiatric care along with follow up with primary care provider. -Patient counseled on abstaining from recreational drugs and marijuana and alcohol. Was informed/educated on the adverse effects on their physical and mental health. Patient verbally agreed and understood. -Patient was instructed to return to the hospital or seek immediate medical care if their psychiatric or medical symptoms do worsen or reoccur. Laboratory Results WBC 11.4 k/uL (3.8-10.6) H 09/13/21 10:10 RBC 5.09 m/uL (3.80-5.40) 09/13/21 10:10 Hgb 14.8 gm/dL (11.4-16.0) 09/13/21 10:10 Hct 46.1 % (34.0-46.0) H 09/13/21 10:10 MCV 90.5 fL (80.0-100.0) 09/13/21 10:10 MCH 29.1 pg (25.0-35.0) 09/13/21 10:10 MCHC 32.1 g/dL (31.0-37.0) 09/13/21 10:10 RDW 13.3 % (11.5-15.5) 09/13/21 10:10 Plt Count 235 k/uL (150-450) 09/13/21 10:10 MPV 8.6 09/13/21 10:10 Neutrophils % 79 % 09/13/21 10:10 Lymphocytes % 16 % 09/13/21 10:10 Monocytes % 3 % 09/13/21 10:10 Eosinophils % 1 % 09/13/21 10:10 Basophils % 0 % 09/13/21 10:10 Neutrophils # 9.0 k/uL (1.3-7.7) H 09/13/21 10:10 Lymphocytes # 1.8 k/uL (1.0-4.8) 09/13/21 10:10 Monocytes # 0.4 k/uL (0-1.0) 09/13/21 10:10 Eosinophils # 0.2 k/uL (0-0.7) 09/13/21 10:10 Basophils # 0.0 k/uL (0-0.2) 09/13/21 10:10 Sodium 138 mmol/L (137-145) 09/13/21 10:10 Potassium 4.4 mmol/L (3.5-5.1) 09/13/21 10:10 Chloride 106 mmol/L (98-107) 09/13/21 10:10 Carbon Dioxide 19 mmol/L (22-30) L 09/13/21 10:10 Anion Gap 13 mmol/L 09/13/21 10:10 BUN 15 mg/dL (7-17) 09/13/21 10:10 Creatinine 0.42 mg/dL (0.52-1.04) L 09/13/21 10:10 Est GFR (CKD-EPI)AfAm >90 (>60 ml/min/1.73 sqM) 09/13/21 10:10 Est GFR (CKD-EPI)NonAf >90 (>60 ml/min/1.73 sqM) 09/13/21 10:10 Glucose 270 mg/dL (74-99) H 09/13/21 10:10 POC Glucose (mg/dL) 131 mg/dL (70-110) H 09/17/21 12:34 POC Glu Ancient Art Curator Luna Morataya 09/17/21 12:[address] Glu mg/dL 260 09/13/21 10:10 Hemoglobin A1c 10.7 % (0.0-6.0) H 09/13/21 10:10 Calcium 9.8 mg/dL (8.4-10.2) 09/13/21 10:10 Total Bilirubin 0.9 mg/dL (0.2-1.3) 09/13/21 15:27 Conjugated Bilirubin 0.0 mg/dL (0.0-0.3) 09/13/21 15:27 Unconjugated Bilirubin 0.7 mg/dL (0.0-1.1) 09/13/21 15:27 Delta Bilirubin 0.2 mg/dL (0.0-0.2) 09/13/21 15:27 AST 26 U/L (14-36) 09/13/21 15:27 ALT 47 U/L (4-34) H 09/13/21 15:27 Alkaline Phosphatase 74 U/L (38-126) 09/13/21 15:27 Total Protein 7.1 g/dL (6.3-8.2) 09/13/21 15:27 Albumin 4.4 g/dL (3.5-5.0) 09/13/21 15:27 Triglycerides 208.00 mg/dL (0.00-149.00) H 09/13/21 10:10 Cholesterol 195.00 mg/dL (0.00-200.00) 09/13/21 10:10 LDL Cholesterol, Calc 119.1 mg/dL (0.0-131.0) 09/13/21 10:10 VLDL Cholesterol, Calc 41.60 mg/dL (5.00-40.00) H 09/13/21 10:10 HDL Cholesterol 34.30 mg/dL (40.00-60.00) L 09/13/21 10:10 Cholesterol/HDL Ratio 5.69 Ratio 09/13/21 10:10 TSH 2.540 mIU/L (0.465-4.680) 09/13/21 10:10 Urine Color Yellow 09/13/21 00:38 Urine Appearance Clear (Clear) 09/13/21 00:38 Urine pH 5.0 (5.0-8.0) 09/13/21 00:38 Ur Specific [place] 1.044 (1.001-1.035) H 09/13/21 00:38 Urine Protein Trace (Negative) H 09/13/21 00:38 Urine Glucose (UA) 4+ (Negative) H 09/13/21 00:38 Urine Ketones 2+ (Negative) H 09/13/21 00:38 Urine Blood Negative (Negative) 09/13/21 00:38 Urine Nitrite Negative (Negative) 09/13/21 00:38 Urine Bilirubin Negative (Negative) 09/13/21 00:38 Urine Urobilinogen <2.0 mg/dL (<2.0) 09/13/21 00:38 Ur Leukocyte Esterase Trace (Negative) H 09/13/21 00:38 Urine RBC 5 /hpf (0-5) 09/13/21 00:38 Urine WBC 3 /hpf (0-5) 09/13/21 00:38 Ur Squamous Epith Cells 2 /hpf (0-4) 09/13/21 00:38 Urine Mucus Rare /hpf (None) H 09/13/21 00:38 Urine HCG, Qual Not Detected (Not Detectd) 09/13/21 00:38 Urine Opiates Screen Not Detected (NotDetected) 09/13/21 00:38 Ur Oxycodone Screen Not Detected (NotDetected) 09/13/21 00:38 Urine Methadone Screen Not Detected (NotDetected) 09/13/21 00:38 Ur Propoxyphene Screen Not Detected (NotDetected) 09/13/21 00:38 Ur Barbiturates Screen Not Detected (NotDetected) 09/13/21 00:38 U Tricyclic Antidepress Not Detected (NotDetected) 09/13/21 00:38 Ur Phencyclidine Scrn Not Detected (NotDetected) 09/13/21 00:38 Ur Amphetamines Screen Not Detected (NotDetected) 09/13/21 00:38 U Methamphetamines Scrn Not Detected (NotDetected) 09/13/21 00:38 U Benzodiazepines Scrn Not Detected (NotDetected) 09/13/21 00:38 Urine Cocaine Screen Not Detected (NotDetected) 09/13/21 00:38 U Marijuana (THC) Screen Not Detected (NotDetected) 09/13/21 00:38 Coronavirus (PCR) Not Detected (Not Detectd) 09/16/21 08:35 Hepatitis A IgM Ab Nonreactive (Nonreactive) 09/13/21 15:27 Hep Bs Antigen Nonreactive (Nonreactive) 09/13/21 15:27 Hep B Core IgM Ab Nonreactive (Nonreactive) 09/13/21 15:27 Hep C IgG Ab Nonreactive (Nonreactive) 09/13/21 15:27 Vital Signs - 24 hr 09/17/21 08:27 Temperature 96.8 F L Pulse Rate [ 95 Right] Blood Pressure 135/74 [Right Arm] Plan - Discharge Summary Discharge Rx Participant: No New Discharge Prescriptions: New traZODone HCL [Desyrel] 50 mg PO HS PRN 30 Days #30 tab PRN Reason: Insomnia INSULIN ASPART (NovoLOG) [NovoLOG (formulary)] 0 unit SQ ACHS each Escitalopram [Lexapro] 10 mg PO HS 30 Days #30 tab Continue metFORMIN HCL [metFORMIN HCL ER] 1,000 mg PO DAILY Spironolactone [Aldactone] 25 mg PO DAILY Norgestimate-Ethinyl Estradiol [Ortho Tri-Cyclen 28 Tablet] 1 each PO DAILY Discontinued Cyclobenzaprine [Flexeril] 10 mg PO TID PRN #15 tab PRN Reason: muscle spasm Naproxen [Naprosyn] 250 mg PO BID Doxycycline Monohydrate [Monodox] 100 mg PO Q12HR #20 cap Discharge Medication List Norgestimate-Ethinyl Estradiol [Ortho Tri-Cyclen 28 Tablet] 1 each PO DAILY 12/10/14 [History] Spironolactone [Aldactone] 25 mg PO DAILY 12/10/14 [History] metFORMIN HCL [metFORMIN HCL ER] 1,000 mg PO DAILY 12/10/14 [History] Escitalopram [Lexapro] 10 mg PO HS 30 Days #30 tab 09/17/21 [Rx] INSULIN ASPART (NovoLOG) [NovoLOG (formulary)] 0 unit SQ ACHS each 09/17/21 [Rx] traZODone HCL [Desyrel] 50 mg PO HS PRN 30 Days #30 tab 09/17/21 [Rx] Follow up Appointment(s)/Referral(s): [facility] [Outside] - 09/21/21 1:00 pm (With Ruiz Casiano) Sushant Fuentes DO [Primary Care Provider] - 1-2 days Patient Instructions/Handouts: Depression (DC) Activity/Diet/Wound Care/Special Instructions: Avoid the use of street drugs and alcohol. Take all prescriptions as prescribed. When you are in need of refills on your medications, please contact your medical provider and/or outpatient psychiatrist to have this done. Please go to scheduled outpatient appointment for aftercare treatment. If symptoms return or become worse, call the crisis line at and/or go to the nearest emergency room for evaluation. Discharge Disposition: HOME SELF-CARE
== END 2021-09-17 14:12 | disposition home or self-care (01) | DRG 880 ==
LOC: EC 20:48 → 3MHU 09-13 06:11
PROVIDERS: ADMIT Psychiatry & Neurology Psychiatry; ATTEND Psychiatry & Neurology Psychiatry
DX: R45.851 Suicidal ideations (principal); R17 Unspecified jaundice; F32.2 Major depressive disorder, single episode, severe without psychotic features; Z20.822 Contact with and (suspected) exposure to COVID-19; E11.9 Type 2 diabetes mellitus without complications; E66.9 Obesity, unspecified; T38.3X6A Underdosing of insulin and oral hypoglycemic [antidiabetic] drugs, initial encounter; Z68.39 Body mass index [BMI] 39.0-39.9, adult; F41.1 Generalized anxiety disorder; G40.909 Epilepsy, unspecified, not intractable, without status epilepticus; E80.6 Other disorders of bilirubin metabolism; M54.9 Dorsalgia, unspecified; G89.29 Other chronic pain; Z91.128 Patient's intentional underdosing of medication regimen for other reason; Z71.3 Dietary counseling and surveillance; Z63.4 Disappearance and death of family member; Z79.4 Long term (current) use of insulin; Z79.899 Other long term (current) drug therapy; Z81.8 Family history of other mental and behavioral disorders; Z88.1 Allergy status to other antibiotic agents
CPT/HCPCS: 36415; 80053; 80061; 80074; 80076; 80306; 81001; 81025; 82075; 83036; 84443; 85025; 87635; 99285